=== PATIENT | female | born 1960 | race African-American/Black ===

== ENCOUNTER → 2017-07-07 08:13 | Outpatient (CLI) | payer BC, SELFPAY ==
--- NOTE | 2017-07-07 08:31 | XR_ITS ---
XR DEXA axial skeleton HISTORY: ITS.REASON: screening ORDERING PHYSICIAN: Suhail Emmanuel MD PATIENT AGE: 56 years COMPARISON: 06/08/2013 FINDINGS: The BMD measured at the Right femoral neck is 0.860 g/cm squared with a T score of -1.3. This is considered Osteopenic according to the World Health Organization criteria. Fracture risk is Moderate. Treatment is advised. L1 L4 density has a T score of 0.3. Lumbar density has increased by 7%. The hip density has decreased by 3% compared to the previous study. The scanogram shows a lucency in the left femoral neck possibly related to a bone cyst. Radiograph may confirm IMPRESSION: Osteopenia with moderate fracture risk. Suggest follow-up exam June 2019 Possible lucent lesion left femoral neck. Hip films may be of further value
--- NOTE | 2017-07-07 08:32 | MM_ITS ---
MM Dig screening mamm BI w/CAD CAD Screening ORDERING PHYSICIAN : Suhail Emmanuel MD . AGE: 56 years GENDER: Female HISTORY. 56-year-old takes estrogen. No new complaints. Noncontributory family history COMPARISON: Previous mammograms: January 2016, January 2015, May 2013.: TECHNIQUE: Standard CC and MLO images were obtained. R2 CAD reviewed. FINDINGS: Stable overall glandular pattern with no dominant mass nor suspicious calcifications in either breast. . No significant new areas of concern RIGHT BREAST:Stable right mammogram follow-up in one year. LEFT BREAST:No significant new findings. 2 MLO views are helpful and shows that minimal areas of glandular tissue at superior left breast unchanged from one view to another. Cluster of benign calcification superior left breast. Unchanged. A few other scattered calcifications left breast be followed. IMPRESSION: Stable bilateral mammogram. No new areas concern. Follow-up in one year recommended. BI-RADS Category: 2 Benign Finding(s) RECOMMENDED FOLLOW-UP: 1YR - 1 YEAR FOLLOW-UP (A letter has been sent to the patient regarding results of the study.)
--- NOTE | 2017-07-07 08:33 | FL_ITS ---
FL upper GI small bowel HISTORY: ITS.REASON: ABDOMINAL PAIN,N/V ORDERING PHYSICIAN: Suhail Emmanuel MD PATIENT AGE: 56 years Comparison: None FINDINGS: The esophagus, stomach, and duodenum have an unremarkable appearance. There is no evidence of hiatal hernia. No ulcer or mass evident. No mucosal abnormalities apparent. There is normal peristalsis. The duodenal C-loop is nondisplaced. Small bowel has an unremarkable appearance. No obstructing lesions or mucosal abnormalities evident. Terminal ileum has an unremarkable appearance. No masses. A FLUOROSCOPY TIME : 2 minutes and 43 seconds. IMPRESSION: Negative upper GI and small bowel follow-through
--- NOTE | 2017-07-07 08:45 | US_ITS ---
US abdomen limited HISTORY:Mid abdominal pain, bloating, fullness ORDERING PHYSICIAN: Suhail Emmanuel MD PATIENT AGE: 56 years Comparison: None Sagittal, transverse and decubitus imaging of the gallbladder was performed. GALLBLADDER - No stones are evident. There is no gallbladder wall thickening. Common duct is normal in diameter. Liver: Unremarkable Pancreas: Unremarkable Right kidney: Unremarkable appearing. No hydronephrosis. IMPRESSION: Negative gallbladder ultrasound. No stones evident.
== END ==
PROVIDERS: Family Provider Physician Assistant; PCP Physician Assistant; Visit Provider Obstetrics & Gynecology
DX: R11.2 Nausea with vomiting, unspecified (principal); R10.84 Generalized abdominal pain; Z12.31 Encounter for screening mammogram for malignant neoplasm of breast; Z78.0 Asymptomatic menopausal state
CPT/HCPCS: 74245; 76705; 77067; 77080

== ENCOUNTER → 2017-08-24 05:59 | Outpatient (CLI) | payer BC, SELFPAY ==
--- NOTE | 2017-08-24 06:03 | NM_ITS ---
History and Indications: Hypertension, family history, chest pain, shortness of breath, palpitations, fatigue and abnormal EKG. Procedure: Patient exercised on Andrea protocol 6 min, resting heart rate was 72 bpm, resting blood pressure 141/87, with exercise maximum heart rate achieved was 1 57 bpm which is equal to 84% of the maximum predicted heart rate and a blood pressure was 190/86. Test was started due to shortness of breath and fatigue, patient denied any complained of chest pain. Patient has a adequate exercise capacity achieved7.0mets of workload on treadmill, the blood pressure response to exercise was adequate. Patient did not achieve the target heart rate. Electrocardiogram: Resting electrocardiogram showed sinus rhythm, with exercise there is less than 1.[address] segment depression noted from the baseline EKG. The EKG portion of the exercise Myoview is nondiagnostic as patient did not achieve the target heart rate. Cardiac stress and resting SPECT images: Cardiac stress and rest SPECT images were obtained using technetium 99 Myoview 31.8 mCi at stress, and 10.3 mCi at rest. Gated SPECT further analysis of segmental wall motion and calculation of the ejection fraction also done. Cardiac stress and rest SPECT images show uniform myocardial activity without any segmental perfusion abnormality, computer derived ejection fraction is 62% with no obvious regional wall motion abnormality, right ventricle is normal size and contractility. Conclusion: 1. The EKG portion of the exercise Myoview is nondiagnostic as patient did not achieve the target heart rate, patient has adequate exercise capacity achieved 7 mets of workload on treadmill, the blood pressure response to exercise was adequate, there was no exercise-induced chest discomfort. 2. No obvious scintigraphic evidence of reversible ischemia seen at this level of exercise, computer derived ejection fraction is 62% with no obvious regional wall motion abnormality, right ventricle is normal size and contractility.
--- NOTE | 2017-08-24 06:03 | XR_ITS ---
XR chest 2V HISTORY: ITS.REASON: cp dyspnea abn ecg ORDERING PHYSICIAN: Jaron Ellsworth MD PATIENT AGE: 56 years COMPARISON: None available FINDINGS: The cardiomediastinal silhouette and pulmonary vascularity are within normal limits. The lungs are clear without infiltrates, suspicious nodules, or pleural effusions. No acute bony abnormalities. IMPRESSION: Negative chest, no acute finding
--- NOTE | 2017-08-24 06:03 | CA_ITS ---
PROCEDURE: 2-D M-mode and color Doppler study INDICATIONS FOR THE TEST: Chest pain X COPD Heart Murmur Tobacco Smoking Palpitations Fatigue Syncope EdemaX HypertensionXDiabetes Mellitus Rheumatic Fever SOBXDOE Obesity Hyperlipidemia Family History HD Additional History ABN EKG PATIENT INFORMATION HEIGHT: 60 WEIGHT:183 GENDER: Female B/P:130/75 2-D/M-MODE INTERPRETATION: 2-D MEASUREMENTS OBSERVED VALUES IN CMS Right Ventricular Dimension (RVDd) 2.5 Interventricular Septum (Thickness)(IVsd) .9 Left Ventricular Internal Dimensions(LVIDd) 4.4 Left Ventricular Posterior Wall (Thickness)(LVPWd) .7 Aortic Root 3.0 Aortic Cusp Separation 2.0 Left Atrial Dimensions (LAD) 3.3 2D 1. Left atrium is normal size, left ventricle is normal size, there is no concentric left ventricular hypertrophy, visually estimated ejection fraction 55% with no obvious regional wall motion abnormality. 2. The right atrium and right ventricle are normal size and contractility. 3. The aortic valve is minimally thickened and fibrosed. 4. The mitral and tricuspid valve are grossly normal. 5. The pulmonic valve is poorly visualized. 6. No significant pericardial effusion noted. DOPPLER INTERROGATION: Doppler interrogation of the aortic, mitral and tricuspid valvular presence of mild mitral and tricuspid regurgitation, tricuspid and jet velocity is insufficient for calculation of the right ventricular systolic pressure, diastolic parameters are within normal range. CONCLUSION: 1. Normal left ventricular size, preserved left ventricular systolic function, visually estimated ejection fraction 55% with no obvious regional wall motion abnormality, diastolic parameters are within normal range. 2. Mild mitral and tricuspid regurgitation 3. No significant pericardial effusion noted.
[2017-08-24 10:33] VITALS: PULSE 81
== END ==
PROVIDERS: Family Provider Physician Assistant; PCP Physician Assistant; Visit Provider Internal Medicine
DX: R07.9 Chest pain, unspecified (principal); R06.00 Dyspnea, unspecified; R94.31 Abnormal electrocardiogram [ECG] [EKG]; I10 Essential (primary) hypertension
CPT/HCPCS: 71046; 78452; 93017; 93306; 94060; 94640; 94726; 94729

== ENCOUNTER → 2018-09-28 14:18 | Outpatient (CLI) | payer OTHER, SELFPAY ==
--- NOTE | 2018-09-28 14:21 | XR_ITS ---
PROCEDURE: XR DEXA AXIAL SKELETON CLINICAL HISTORY: SCREENING COMPARISON: No exams were available for comparison TECHNIQUE: FINDINGS: L1-L4 density is 1.199 grams/centimeters sq with a T-score of 0.2. Lowest density in the hips is in the right femoral neck at 0.897 grams/centimeter sq with a T-score of -1 IMPRESSION: Normal bone density with low fracture risk. Recommend follow-up exam September 2020 Dictated by: Ernie Summers MD 09/28/2018 15:30 Signed by: <Electronically signed by Ernie Summers MD in [place]> 09/28/2018 15:30
--- NOTE | 2018-09-28 14:21 | MM_ITS ---
PROCEDURE: MM DIG SCREENING MAMM BI W/CAD CLINICAL INDICATION: SCREENING There is no personal or family history of breast cancer COMPARISON: [facility] DIG MAMM-SCREEN JARROD from 01/23/2015 [facility] DIG MAMM-SCREEN JARROD from 01/26/2016 [facility] MM Dig screening mamm BI w/CAD from 07/07/2017 TECHNIQUE: Standard CC and MLO images were obtained. R2 CAD reviewed. FINDINGS: Scattered fibroglandular densities are seen in both breasts. The findings of a lateral symmetrical. There are few benign-appearing microcalcifications left breast. There is no suspicious lesion and no suspicious microcalcifications. IMPRESSION: Fibrofatty parenchyma with no suspicious lesions seen BI-RAD Category: 2 Benign Finding(s) FOLLOW-UP: 1YR 1 Year Follow-up (A letter has been sent to the patient regarding results of the study.) Dictated by: Dr. Nils Leavitt MD 09/30/2018 13:29 Signed by: <Electronically signed by Dr. Nils Leavitt MD in [place]> 09/30/2018 13:29
== END ==
PROVIDERS: PCP Physician Assistant; Visit Provider Obstetrics & Gynecology
DX: Z79.890 Hormone replacement therapy (principal); Z12.31 Encounter for screening mammogram for malignant neoplasm of breast
CPT/HCPCS: 77067; 77080

== ENCOUNTER → 2018-10-12 15:47 | Outpatient (CLI) | payer OTHER, SELFPAY ==
[2018-10-12 16:45] LABS: Thyroid Stimulating Hormone 1.37 uIU/ml (0.358-3.740)
== END ==
PROVIDERS: Visit Provider Obstetrics & Gynecology
DX: E03.9 Hypothyroidism, unspecified (principal)
CPT/HCPCS: 36415; 84443

== ENCOUNTER 2019-11-19 11:25 | Emergency (ER) | payer BC, SELFPAY ==
[2019-11-19 11:55] VITALS: BP 126/78; PULSE 99; RESP 18; TEMP 36.6; O2SAT 98; BMI 34.4
--- NOTE | 2019-11-19 12:29 | HMH.EDUTC ---
[facility] [place] Clinical Impression: Encounter for laboratory testing for COVID-19 virus Disposition: Home, Self-Care Condition on Discharge: Good Instructions: Preventing the Spread of Coronavirus Discharge Instructions Additional Instructions: *Monitor Temp, Over the counter Motrin or Tylenol as directed/as needed Tylenol every 4 hours and Motrin every 6 hours (as long as your family doctor has told you that you can take it) for fever or pain. and straight to ER if unable to lower temp less than 101.0 after medication given *Warm salt water gargles may help to soothe the throat *Throat Lozenges *Warm fluids like tea with honey may help to soothe the throat *Sleep elevated *Humidifier/Vaporizer Follow up IMMEDIATELY for new or worsening symptoms or no Noticeable improvement over the next 48-72 hours. 911 for difficulty breathing or swallowing You was tested for today for COVID19 your test result should be back later this evening, you may call back later this evening to see if your test results are back and the result You was given a handout with instructions for Self Quarantine and Self isolation for while you wait on test results and what to do if they are positive Referrals: Nataly Lunsford [Primary Care Provider] - As needed Forms: Work/School Release Time of Disposition: 12:31 Medical Decision Making - Shaheen Inquiry Pt receiving controlled substance: No Shaheen was queried for this patient: No Vital Signs: 11/19/19 11:55 Temperature 97.9 F Temperature Source Oral Pulse Rate [Right Brachial] 99 H Respiratory Rate 18 Blood Pressure [Right Arm] 126/78 Blood Pressure Mean [Right Arm] 94 Blood Pressure Source [Right Arm] Automatic Cuff Blood Pressure Position [Right Arm] Sitting 02 Sat by Pulse Oximetry 98 Oxygen Delivery Method Room Air Orders (Tests/Meds): ORDERS Category Date Time Status Covid-19 Nasal PCR ([facility]) Routine Lab 11/19/19 11:40 Ordered [facility] [place] HPI - General Stated complaint: wants covid test Time Seen by Provider: 11/19/19 12:29 Mode of Arrival: Ambulatory Source of Information: Patient Limitations: No Limitations Description of Symptoms (Recalled from Triage Doc. by RN): PATIENT REQUESTING COVID TEST D/T EXPOSURE ON TUESDAY; DENIES SYMPTOMS HEENT Symptoms (Recalled from RN notes): No Resp Symptoms (Recalled from RN notes): No Skin Symptoms (Recalled from RN notes): No MS Symptoms (Recalled from RN notes): No Functional Status (Recalled from RN notes): WNL - History of Present Illness Provider Complaint: Patient state that family was around someone on Tuesday that has since tested positive for COVID and she came in today wanting to get tested due to known exposure of her grand daughter that she takes care of - Related Data Home Medications Medication Instructions Recorded Confirmed levothyroxine 100 mcg tablet 100 mcg PO DAILY tab 07/05/17 02/22/19 spironolactone 100 mg tablet 100 mg PO QAM 07/05/17 02/22/19 cardioplegic no.20 (maint 4:1) 20 ml PERFUSION ml 08/22/18 02/22/19 mEq/810 mL (potassium) perfusion estradiol valerate 20 mg/mL 30 mg IM Q4W ml 10/12/18 02/22/19 intramuscular oil losartan 50 mg tablet 50 mg PO DAILY tab 07/03/19 potassium chloride 10 mEq meq PO 07/03/19 tablet,extended release sertraline 100 mg tablet 100 mg PO DAILY tab 07/03/19 Allergies Allergy/AdvReac Type Severity Reaction Status Date / Time No Known Drug Allergies Allergy Unknown Verified 10/22/19 13:41 - Worker's Comp Is this a Worker's Comp case?: No [facility] History - Hepatitis A Screen Drug use history?: No High risk sexual behaviors?: No History of sexually transmitted infection?: No Currently employed?: No Childcare worker?: No Do you have indoor plumbing?: Yes Do you have electricity?: Yes Attestation statement:: This patient has been screened for Hepatitis A risk factors. I have reviewed the patient's past medical history: Yes Medical History: R
[2019-11-19 12:55] VITALS: BP 126/78; PULSE 99; RESP 18; TEMP 36.6; O2SAT 98
== END 2019-11-19 12:58 | disposition home or self-care (01) ==
PROVIDERS: Emergency Provider Nurse Practitioner; PCP Physician Assistant
DX: Z20.828 Contact with and (suspected) exposure to other viral communicable diseases (principal); K21.9 Gastro-esophageal reflux disease without esophagitis; I10 Essential (primary) hypertension; E03.9 Hypothyroidism, unspecified; Z87.891 Personal history of nicotine dependence; Z79.899 Other long term (current) drug therapy
CPT/HCPCS: 99201; U0003

== ENCOUNTER 2019-12-30 17:30 | Emergency (ER) | payer OTHER, SELFPAY ==
[2019-12-30 18:00] VITALS: BP 131/70; PULSE 97; RESP 17; TEMP 36.8; O2SAT 98; BMI 33.8
--- NOTE | 2019-12-30 18:28 | HMH.EDUTC ---
[facility] [place] Disposition Clinical Impression: Exposure to COVID-19 virus, Bronchitis, Viral syndrome Disposition: Home, Self-Care Condition on Discharge: Good Instructions: DI for Viral Syndrome, Preventing the Spread of Coronavirus Discharge Instructions Additional Instructions: Drink plenty of fluids. Take tylenol for pain or fever. Return if you begin to have difficulty breathing. Follow up with your regular doctor. GO TO THE ER FOR ANY WORSENING SYMPTOMS Prescriptions: Benzonatate [Tessalon Perle 100mg Cap] 100 mg PO TIDP PRN #30 cap PRN Reason: Cough [id number] Azithromycin [Z-Nabil 250mg Tab*] 250 mg PO UD DOSE PK #6 tab Transmission Status: [id number] Referrals: Nataly Lunsford [Primary Care Provider] - Time of Disposition: 18:30 Medical Decision Making - Medical Records Medical records reviewed: No: I reviewed the patient's medical records. - Shaheen Inquiry Pt receiving controlled substance: No Vital Signs: 12/30/19 18:00 12/30/19 18:45 Temperature 98.3 F 98.3 F Temperature Source Oral Oral Pulse Rate 97 H Pulse Rate [Left Brachial] 97 H Respiratory Rate 17 17 Blood Pressure 131/70 Blood Pressure [Right Arm] 131/70 Blood Pressure Mean [Right Arm] 90 Blood Pressure Source [Right Arm] Automatic Cuff Blood Pressure Position [Right Arm] Sitting 02 Sat by Pulse Oximetry 98 Oxygen Delivery Method Room Air Orders (Tests/Meds): ORDERS Category Date Time Status Covid-19 Nasal PCR Sendout [place] Routine Lab 12/30/19 17:55 Received [facility] [place] HPI - General Stated complaint: Headache, sore throat, cough Time Seen by Provider: 12/30/19 18:28 Mode of Arrival: Ambulatory Source of Information: Patient Limitations: No Limitations Description of Symptoms (Recalled from Triage Doc. by RN): PATIENT REQUESTING COVID TEST D/T EXPOSURE; C/O HEADACHE, SORE THROAT HEENT Symptoms (Recalled from RN notes): Yes Resp Symptoms (Recalled from RN notes): No Skin Symptoms (Recalled from RN notes): No MS Symptoms (Recalled from RN notes): No Functional Status (Recalled from RN notes): WNL - History of Present Illness Provider Complaint: She states that for the past 2 days she has had a sore throat, cough, and felt very bad. She has a family member in her home that currently has covid. - Related Data Home Medications Medication Instructions Recorded Confirmed levothyroxine 100 mcg tablet 100 mcg PO DAILY tab 07/05/17 02/22/19 spironolactone 100 mg tablet 100 mg PO QAM 07/05/17 02/22/19 cardioplegic no.20 (maint 4:1) 20 ml PERFUSION ml 08/22/18 02/22/19 mEq/810 mL (potassium) perfusion estradiol valerate 20 mg/mL 30 mg IM Q4W ml 10/12/18 02/22/19 intramuscular oil losartan 50 mg tablet 50 mg PO DAILY tab 07/03/19 potassium chloride 10 mEq meq PO 07/03/19 tablet,extended release sertraline 100 mg tablet 100 mg PO DAILY tab 07/03/19 furosemide 20 mg tablet 20 mg PO DAILY 12/18/19 Previous Rx's Medication Instructions Recorded Azithromycin [Z-Nabil 250mg Tab*] 250 mg PO UD DOSE PK #6 tab 12/30/19 Benzonatate [Tessalon Perle 100mg 100 mg PO TIDP PRN #30 cap 12/30/19 Cap] Allergies Allergy/AdvReac Type Severity Reaction Status Date / Time No Known Drug Allergies Allergy Unknown Verified 12/18/19 15:26 - Worker's Comp Is this a Worker's Comp case?: No [facility] History - Hepatitis A Screen Drug use history?: No High risk sexual behaviors?: No History of sexually transmitted infection?: No Currently employed?: No Childcare worker?: No Do you have indoor plumbing?: Yes Do you have electricity?: Yes Attestation statement:: This patient has been screened for Hepatitis A risk factors. I have reviewed the patient's past medical history: Yes Medical History: Reports:: Gastroesophageal Reflux Disease(GERD), Hepatitis, Hypertension Other Medical History: Reports: Arthritis, Hypothyroidism, Other C
[2019-12-30 18:45] VITALS: BP 131/70; PULSE 97; RESP 17; TEMP 36.8; O2SAT 98
[2020-01-01 13:32] LABS: Covid-19 Nasal PCR Sendout Lex Not Detected
== END 2019-12-30 18:46 | disposition home or self-care (01) ==
PROVIDERS: Emergency Provider Nurse Practitioner Family; PCP Physician Assistant
DX: Z20.828 Contact with and (suspected) exposure to other viral communicable diseases (principal); J20.9 Acute bronchitis, unspecified; B34.9 Viral infection, unspecified; Z79.899 Other long term (current) drug therapy
CPT/HCPCS: 99201; U0004

== ENCOUNTER → 2020-11-18 09:43 | Outpatient (CLI) | payer BC, SELFPAY ==
--- NOTE | 2020-11-18 09:44 | MM_ITS ---
PROCEDURE INFORMATION: Exam: MG Bilateral Screening 3D Mammography Exam date and time: 11/18/2020 9:44 AM Age: 60 years old Clinical indication: Encounter for screening mammogram for malignant neoplasm of breast TECHNIQUE: Imaging protocol: Bilateral screening tomosynthesis and 2D mammography including computer-aided detection (CAD) when performed. COMPARISON: No relevant prior studies available. FINDINGS: MAMMOGRAPHY: Breast composition: The breast tissue is composed of scattered areas of fibroglandular density. Mass: None. Architectural distortion: None. Calcifications: No suspicious calcifications. Asymmetric density: None. Skin thickening: None. Axillary adenopathy: None. IMPRESSION: No mammographic evidence of malignancy. Annual screening is recommended unless otherwise clinically indicated. ASSESSMENT: BI-RADS Category 1: Negative
== END ==
PROVIDERS: PCP Family Medicine; Visit Provider Obstetrics & Gynecology
DX: Z12.31 Encounter for screening mammogram for malignant neoplasm of breast (principal)
CPT/HCPCS: 77063; 77067

== ENCOUNTER 2021-02-01 10:02 | Emergency (ER) | payer BC, SELFPAY ==
[2021-02-01 10:50] VITALS: BP 131/68; PULSE 127; RESP 19; TEMP 38.3; O2SAT 98; BMI 30.7
--- NOTE | 2021-02-01 11:26 | XR_ITS ---
PROCEDURE INFORMATION: Exam: XR Chest Exam date and time: 02/01/2021 11:26 AM Age: 60 years old Clinical indication: Shortness of breath; Additional info: SOB, cough, chills TECHNIQUE: Imaging protocol: XR of the chest. Views: 2 views. COMPARISON: CR CXR2V XR chest 2V 08/24/2017 6:07 AM FINDINGS: Lungs: Unremarkable. No consolidation. Pleural spaces: Unremarkable. No pleural effusion. No pneumothorax. Heart/Mediastinum: Unremarkable. No cardiomegaly. Bones/joints: Unremarkable. IMPRESSION: No acute cardiopulmonary disease.
--- NOTE | 2021-02-01 11:26 | HMH.EDUTC ---
[facility] [place] Disposition Clinical Impression: Bronchitis Disposition: Home, Self-Care Condition on Discharge: Good Instructions: Acute Bronchitis Additional Instructions: covid swab was sent to lab, call later today for results. self isolate until test results are known to be negative Nasal saline and bulb syringe or nose Georgette to remove nasal drainage to help with nasal congestion. Hard to eat, drink, sleep with nasal congestion so important to keep this cleaned out. Monitor temp. Tylenol or Motrin as needed for pain or fever Encourage fluids, water, Gatorade, Powerade, Pedialyte if infant/toddler/child Warm salt water gargles Warm fluids Sore throat lozenges Sleep elevated Humidifier/vaporizer Follow-up immediately for new or worsening symptoms or no noticeable improvement over the next 48-72 hours. Prescriptions: Azithromycin [Zithromax 250mg tab] 250 mg PO DIRECTED #6 tab Transmission Status: Pending to [id number] Referrals: Provider,Referral, MD [Primary Care Provider] - Forms: Work/School Release Time of Disposition: 12:11 Medical Decision Making - Shaheen Inquiry Pt receiving controlled substance: No Vital Signs: 02/01/21 10:50 02/01/21 11:33 Temperature 101.0 F H 101.0 F H Temperature Source Oral Pulse Rate 121 H Pulse Rate [Right Brachial] 127 H Respiratory Rate 19 19 Blood Pressure 131/68 Blood Pressure [Right Arm] 131/68 Blood Pressure Mean [Right Arm] 89 Blood Pressure Source [Right Arm] Automatic Cuff Blood Pressure Position [Right Arm] Sitting 02 Sat by Pulse Oximetry 98 Oxygen Delivery Method Room Air - Lab Data Lab Results 02/01/21 11:12: Influenza Type A Ag Negative, Influenza Type B Ag Negative Orders (Tests/Meds): ORDERS Category Date Time Status Covid-19 Nasal PCR ([facility]) Routine Lab 02/01/21 11:[address] [facility] [place] HPI - General Chief complaint: [facility] Stated complaint: covid symptoms Time Seen by Provider: 02/01/21 11:26 Mode of Arrival: Ambulatory Source of Information: Patient Limitations: No Limitations Description of Symptoms (Recalled from Triage Doc. by RN): PATIENT C/O HEADACHE, COUGH, CHEST CONGESTION, BODY ACHES AND SCRATCHY THROAT X 2 DAYS HEENT Symptoms (Recalled from RN notes): Yes Resp Symptoms (Recalled from RN notes): Yes Skin Symptoms (Recalled from RN notes): No MS Symptoms (Recalled from RN notes): No Functional Status (Recalled from RN notes): WNL - History of Present Illness Provider Complaint: 60 yr old female presnets for alvarez,coughing up green sputum, chest congestion,body aches and scratchy throat for 2 days. - Related Data Home Medications Medication Instructions Recorded Confirmed levothyroxine 100 mcg tablet 100 mcg PO DAILY tab 07/05/17 01/06/21 spironolactone 100 mg tablet 100 mg PO QAM 07/05/17 01/06/21 cardioplegic no.20 (maint 4:1) 20 ml PERFUSION ml 08/22/18 01/06/21 mEq/810 mL (potassium) perfusion estradiol valerate 20 mg/mL 30 mg IM Q4W ml 10/12/18 01/06/21 intramuscular oil losartan 50 mg tablet 50 mg PO DAILY tab 07/03/19 01/06/21 potassium chloride 10 mEq meq PO 07/03/19 01/06/21 tablet,extended release sertraline 100 mg tablet 100 mg PO DAILY tab 07/03/19 01/06/21 furosemide 20 mg tablet 20 mg PO DAILY 12/18/19 01/06/21 Previous Rx's Medication Instructions Recorded Azithromycin [Zithromax 250mg 250 mg PO DIRECTED #6 tab 02/01/21 tab] Allergies Allergy/AdvReac Type Severity Reaction Status Date / Time No Known Drug Allergies Allergy Unknown Verified 01/06/21 16:16 - Worker's Comp Is this a Worker's Comp case?: No [facility] History - Hepatitis A Screen Drug use history?: No High risk sexual behaviors?: No History of sexually transmitted infection?: No Currently employed?: No Childcare worker?: No Do you have indoor plumbing?: Yes Do you have electricity?: Yes Attestation statement:: This patient has been screened for Hepatitis A
[2021-02-01 11:32] LABS: UTC Influenza A Antigen Negative (Negative); UTC Influenza B Antigen Negative (Negative)
[2021-02-01 11:33] VITALS: BP 131/68; PULSE 121; RESP 19; TEMP 38.3; O2SAT 98
== END 2021-02-01 12:25 | disposition home or self-care (01) ==
PROVIDERS: Emergency Provider Nurse Practitioner Family
DX: J20.9 Acute bronchitis, unspecified (principal); K21.9 Gastro-esophageal reflux disease without esophagitis; I10 Essential (primary) hypertension
CPT/HCPCS: 71046; 87804; 96372; 99202; C9803; G0463; U0003; U0005

== ENCOUNTER → 2022-12-31 12:55 | Outpatient (CLI) | payer BC, SELFPAY ==
--- OUTSIDE RECORDS SUMMARY | 2022-12-31 12:57 | XMS_ITS | Continuity of Care Document ---
Author Name Unknown Address [address], [place] [id number] Organization [facility] Phone Care Team Providers Care Fiber Drier Operator Name Role Phone CELESTINE JALLOH Primary Attending CELESTINE JALLOH Admitting CELESTINE JALLOH Unavailable KATHERINE HAMILTON Primary Care [phone] CELESTINE JALLOH Surgeon ALLERGIES AND ADVERSE REACTIONS ALLERGIES AND ADVERSE REACTIONS Code System Allergy Substance Adverse Reaction Date Reaction (Severity) Comment Status Reported By Updated By Unable To Assess Allergies. TREATMENT PLAN DISCHARGE MEDICATIONS Status RXNORM Medication Dose Route Frequency Dates Comments U pdated By Continued [id number] Hydroxychloroqui ne Sulfate Oral Tablet 200 MG 200 MG BY MOUTH ONCE DAILY Prescrib ed: November 09, 2022 2:56:29 PM [facility] [id number] on November 09, 2022 2:56:29 PM [facility] Continued [id number] Esomeprazole Magnesium Oral Capsule Delayed Release 20 MG 20 MG BY MOUTH ONCE DAILY Prescrib ed: November 09, 2022 2:56:29 PM [facility] [id number] on November 09, 2022 2:56:29 PM [facility] Continued [id number] Losartan Potassi um Oral Tablet 100 MG 100 MG BY MOUTH ONCE DAILY Prescrib ed: November 09, 2022 2:56:29 PM [facility] [id number] on November 09, 2022 2:56:29 PM [facility] Continued [id number] Levothyroxine Sodium Oral Capsule
--- OUTSIDE RECORDS SUMMARY | 2022-12-31 12:57 | XMS_ITS | Continuity of Care Document ---
Author Name Unknown Address [address] [place], [place] [id number] Organization [facility] Phone Care Team Providers Care Entry Level Marketing Assistant Name Role Phone CELESTINE JALLOH Primary Attending CELESTINE JALLOH Admitting CELESTINE JALLOH Unavailable KATHERINE HAMILTON Primary Care ALLERGIES AND ADVERSE REACTIONS ALLERGIES AND ADVERSE REACTIONS Code System Allergy Substance Adverse Reaction Date Reaction (Severity) Comment Status Reported By Updated By Unable To Assess Allergies. TREATMENT PLAN DISCHARGE MEDICATIONS Status RXNORM Medication Dose Route Frequency Dates Comments U pdated By Continued [id number] Hydroxychloroqui ne Sulfate Oral Tablet 200 MG 200 MG BY MOUTH ONCE DAILY Prescrib ed: November 09, 2022 2:56:29 PM [facility] [id number] on November 09, 2022 2:56:29 PM [facility] Continued [id number] Esomeprazole Magnesium Oral Capsule Delayed Release 20 MG 20 MG BY MOUTH ONCE DAILY Prescrib ed: November 09, 2022 2:56:29 PM [facility] [id number] on November 09, 2022 2:56:29 PM [facility] Continued [id number] Losartan Potassi um Oral Tablet 100 MG 100 MG BY MOUTH ONCE DAILY Prescrib ed: November 09, 2022 2:56:29 PM [facility] [id number] on November 09, 2022 2:56:29 PM [facility] Continued [id number] Levothyroxine Sodium Oral Capsule 100 MCG 100 MCG
--- OUTSIDE RECORDS SUMMARY | 2022-12-31 12:57 | XMS_ITS | Continuity of Care Document ---
Author Name Unknown Organization [facility] Address [address] [place] [id number] Phone Care Team Providers Care Medical Esthetician Name Role Phone Jaclyn Terrell APRN Unavailable Unavailable Allergies, Adverse Reactions, Alerts Substance Reaction Status Criticality No Known Allergies Active No Inform ation Medications Medication Instructions Dosage Effective Dates (start - stop) Status Comments Celebrex 200 mg capsule take 1 capsule by oral route 2 times every day as needed 200 MG - Active diclofenac 1 % topical gel apply (2G) by topical route 4 times every day to the affected area(s) 2 G - Active Plaquenil 200 mg tablet take 1 tablet by oral route 2 times every day 200 MG - Active Trelegy Ellipta 200 mcg-62.5 mcg-25 mcg powder for inhalation inhale 1 puff by inhalation route every day at the same time each day 1.00 puff - Active estradiol 0.0375 mg/24 hr semiweekly transdermal patch apply 1 patch by transdermal route 2 times every week cyclically, 3 weeks on and 1 week off 1.00 patch - Active sumatriptan 100 mg tablet take 1 tablet by oral route after onset of migraine; june re
--- NOTE | 2022-12-31 12:59 | MM_ITS ---
PROCEDURE INFORMATION: Exam: MG Bilateral Screening 3D Mammography Exam date and time: 12/31/2022 12:56 PM Age: 62 years old Clinical indication: Screening examination TECHNIQUE: Imaging protocol: Bilateral Screening tomosynthesis and 2D mammography including computer-aided detection (CAD) when performed. COMPARISON: 1. MG MM DIG SCREENING MAMM BI W/CAD 11/18/2020 9:45 AM 2. MG MM DIG SCREENING MAMM BI W/CAD 09/28/2018 3:07 PM FINDINGS: MAMMOGRAPHY: Breast composition: There are scattered areas of fibroglandular density. Mass: None. Architectural distortion: None. Calcifications: No suspicious calcifications. Asymmetric density: None. Skin thickening: None. Axillary adenopathy: None. IMPRESSION: No mammographic evidence of malignancy. Annual screening is recommended unless otherwise clinically indicated. ASSESSMENT: BI-RADS Category 1: Negative
== END ==
PROVIDERS: PCP Nurse Practitioner Family; Visit Provider Obstetrics & Gynecology
DX: Z12.31 Encounter for screening mammogram for malignant neoplasm of breast (principal)
CPT/HCPCS: 77063; 77067

== ENCOUNTER 2024-02-06 13:29 | Outpatient (CLI) | payer BC, SELFPAY ==
--- NOTE | 2024-02-06 13:30 | MM_ITS ---
PROCEDURE INFORMATION: Exam: MG Bilateral Screening 3D Mammography Exam date and time: 02/06/2024 1:17 PM Age: 63 years old Clinical indication: Screening mammogram TECHNIQUE: Imaging protocol: Bilateral Screening tomosynthesis and 2D mammography including computer-aided detection (CAD) when performed. COMPARISON: 1. MG MM DIG SCREENING MAMM BI W/CAD 02/06/2024 1:17 PM 2. MG MM DIG SCREENING MAMM BI W/CAD 12/31/2022 12:56 PM 3. MG MM DIG SCREENING MAMM BI W/CAD 11/18/2020 9:45 AM 4. MG MM DIG SCREENING MAMM BI W/CAD 09/28/2018 3:07 PM FINDINGS: MAMMOGRAPHY: Breast composition: There are scattered areas of fibroglandular density. Mass: None. Architectural distortion: No new or suspicious architectural distortion. Calcifications: No new or suspicious calcifications are present Asymmetric density: No new or suspicious asymmetric density is present Skin thickening: None. Axillary adenopathy: None. IMPRESSION: No mammographic evidence of malignancy. Recommend annual screening mammography unless otherwise clinically indicated. ASSESSMENT: BI-RADS category 1: Negative.
== END 2024-02-06 23:59 | disposition home or self-care (01) ==
LOC: RAD 13:30
PROVIDERS: PCP Nurse Practitioner Family; Visit Provider Obstetrics & Gynecology
DX: Z12.31 Encounter for screening mammogram for malignant neoplasm of breast (principal)
CPT/HCPCS: 77063; 77067